=== PATIENT | female | born 1950 | race Caucasian/White ===

== ENCOUNTER 2020-03-11 20:38 | Observation (INO) ==
[2020-03-11] MEDS ORDERED: 0.9 % Sodium Chloride 1,000 ML IVC ONE (20:51)
[2020-03-11] MEDS ORDERED: Isovue-370 500 ML BOTTLE IVP ONE (20:52)
[2020-03-11] MEDS ORDERED: *HR* FentaNYL (PF) 100 MCG/2 ML VIAL IVP ONE (20:53)
[2020-03-11] MEDS ORDERED: Ondansetron 4 MG/2 ML VIAL IVP ONE (20:54)
[2020-03-11 21:08] LABS: Basophils % 0.2 %; Eosinophils # 0.1 K/mcL (0.0-0.6); Eosinophils % 0.5 %; Hemoglobin 15.3 g/dL (11.5-15.4); Immature Granulocytes % 0.3 % (0-4); Lymphocytes # 2.2 K/mcL (0.6-4.6); Lymphocytes % 14.3 %; Mean Corpuscular Hemoglobin 31.3 pg (28.0-33.3); Mean Platelet Volume 10.3 fL (9.4-12.4); Neutrophils # 10.9 K/mcL (1.6-8.9); Platelet Count 203 K/mcL (140-400); Red Blood Count 4.89 M/mcL (3.82-4.97); Red Cell Distribution Width 12.6 % (11.5-14.5); Segmented Neutrophils % 71.7 %; White Blood Count 15.3 K/mcL (4.3-11.1)
[2020-03-11 21:22] LABS: Bilirubin,Urine Negative (Negative); Blood,Urine Moderate (Negative); Clarity,Urine Turbid (Clear); Color,Urine Red (Yellow); Glucose,Urine (UA) Normal (Normal); Ketones,Urine 20 mg/dL (Negative); Leukocyte Esterase,Urine Small (Negative); Nitrite,Urine Negative (Negative); Protein,Urine 50 mg/dL (Neg-Trace); Specific Gravity,Urine 1.018 (1.010-1.025); Urobilinogen,Urine Normal (Normal)
[2020-03-11 21:30] LABS: Alanine Aminotransferase 57 Units/L (7-52); Albumin 4.6 g/dL (3.5-5.7); Albumin/Globulin Ratio 1.8 (1.1-2.2); Alkaline Phosphatase 100 Units/L (34-104); Aspartate Amino Transferase 26 Units/L (13-39); BUN/Creatinine Ratio 19 (6-26); Bilirubin,Direct 0.2 mg/dL (0.0-0.2); Bilirubin,Indirect 1.3 mg/dL (0.0-1.0); Bilirubin,Total 1.5 mg/dL (0.3-1.0); Blood Urea Nitrogen 20 mg/dL (8-23); Calcium 9.8 mg/dL (8.6-10.3); Carbon Dioxide 29 mEq/L (23-29); Chloride 103 mEq/L (98-107); Globulin 2.6 g/dL (2.4-3.5); Glucose 133 mg/dL (70-105); Lipase 21 Units/L (11-82); Osmolality,Calculated 295 (280-300); Potassium 3.5 mEq/L (3.5-5.1); Sodium 140 mEq/L (136-145); Total Protein 7.2 g/dL (6.4-8.9); eGFR For African Americans > 60 (> 60); eGFR For Non-African Americans 51 (> 60)
[2020-03-11] MEDS ORDERED: Morphine Sulfate 2 MG/ML SYRINGE IVP ONE ×3 (21:35→22:27)
[2020-03-11] MEDS ORDERED: *HR* HYDROmorphone (PF) 1 MG/ML SYRINGE IVP ONE ×2 (22:24→23:28)
[2020-03-11] MEDS ORDERED: cefTRIAXone 1,000 MG in Water for inj. (sterile) 10 ML IVP ONE (23:36)
[2020-03-11] MEDS ORDERED: Ketorolac 15 MG/ML VIAL IVP ONE (23:37)
[2020-03-12] MEDS ORDERED: Ondansetron 4 MG/2 ML VIAL IVP PRN (01:38)
[2020-03-12] MEDS ORDERED: Ketorolac 15 MG/ML VIAL IVP PRN (01:38)
[2020-03-12] MEDS ORDERED: Naloxone 0.4 MG/ML INJ IVP PRN (01:38)
[2020-03-12] MEDS: Ringers Solution, Lactated 1,000 ML IVC SCH ×2 (01:58→10:34)
[2020-03-12 03:19] LABS: Basophils % 0.2 %; Eosinophils % 0.1 %; Hematocrit 42.4 % (35.3-44.9); Hemoglobin 14.3 g/dL (11.5-15.4); Immature Granulocytes % 0.5 % (0-4); Lymphocytes # 1.3 K/mcL (0.6-4.6); Lymphocytes % 7.2 %; Mean Corpuscular HGB Conc 33.7 g/dL (31.6-35.5); Mean Corpuscular Hemoglobin 31.4 pg (28.0-33.3); Mean Platelet Volume 10.6 fL (9.4-12.4); Monocytes # 2.2 K/mcL (0.0-1.3); Neutrophils # 14.7 K/mcL (1.6-8.9); Platelet Count 191 K/mcL (140-400); Red Blood Count 4.56 M/mcL (3.82-4.97); Red Cell Distribution Width 12.6 % (11.5-14.5); White Blood Count 18.4 K/mcL (4.3-11.1)
[2020-03-12 03:26] LABS: Prothrombin Time 11.1 Seconds (9.4-12.1)
[2020-03-12 03:29] LABS: Calcium 8.9 mg/dL (8.6-10.3); Potassium 3.7 mEq/L (3.5-5.1)
[2020-03-12] MEDS: amLODIPine 5 MG TABLET PO SCH (08:57)
[2020-03-12] MEDS: cefTRIAXone 1,000 MG in Water for inj. (sterile) 10 ML IVP SCH (09:04)
[2020-03-12] MEDS ORDERED: Lidocaine/EPI 1:100k 1% 50 ML VIAL ONE (12:39)
[2020-03-12] MEDS ORDERED: 0.9 % Sodium Chloride 500 ML ONE (12:39)
[2020-03-12] MEDS ORDERED: *HR* FentaNYL (PF) 100 MCG/2 ML VIAL IVP ONE (12:57)
[2020-03-12] MEDS ORDERED: *HR* Midazolam HCl 2 MG/2 ML VIAL IVP ONE (12:57)
[2020-03-12] MEDS ORDERED: Isovue-300 50ML VIAL IVP ONE (13:56)
[2020-03-12] MEDS ORDERED: Metoprolol XL (24 HR) Succ 25 MG TAB.ER.24H PO SCH (18:00)
[2020-03-13] MEDS: cefTRIAXone 1,000 MG in Water for inj. (sterile) 10 ML IVP SCH (08:56)
[2020-03-13] MEDS: amLODIPine 5 MG TABLET PO SCH (08:57)
[2020-03-13 10:34] LABS: Basophils % 0.3 %; Eosinophils # 0.1 K/mcL (0.0-0.6); Eosinophils % 1.3 %; Hematocrit 37.7 % (35.3-44.9); Immature Granulocytes % 0.4 % (0-4); Lymphocytes # 2.1 K/mcL (0.6-4.6); Lymphocytes % 22.2 %; Mean Corpuscular HGB Conc 33.2 g/dL (31.6-35.5); Mean Corpuscular Hemoglobin 31.1 pg (28.0-33.3); Mean Corpuscular Volume 93.8 fL (83.0-100.0); Mean Platelet Volume 10.5 fL (9.4-12.4); Monocytes # 1.1 K/mcL (0.0-1.3); Monocytes % 11.4 %; Neutrophils # 6.2 K/mcL (1.6-8.9); Platelet Count 184 K/mcL (140-400); Red Blood Count 4.02 M/mcL (3.82-4.97); Red Cell Distribution Width 12.6 % (11.5-14.5); Segmented Neutrophils % 64.4 %; White Blood Count 9.6 K/mcL (4.3-11.1)
[2020-03-13 10:44] LABS: Hemoglobin 12.5 g/dL (11.5-15.4)
[2020-03-13 10:50] LABS: BUN/Creatinine Ratio 26 (6-26); Blood Urea Nitrogen 24 mg/dL (8-23); Calcium 8.8 mg/dL (8.6-10.3); Carbon Dioxide 27 mEq/L (23-29); Chloride 107 mEq/L (98-107); Glucose 120 mg/dL (70-105); Osmolality,Calculated 295 (280-300); Potassium 3.5 mEq/L (3.5-5.1); Sodium 140 mEq/L (136-145); eGFR For African Americans > 60 (> 60); eGFR For Non-African Americans > 60 (> 60)
[2020-03-13 12:18] VITALS: BP 112/72
== END 2020-03-13 12:45 | disposition home or self-care (01) ==
LOC: EMEROOARM 20:38 → 3BNU 20:38 → SUATTDRO 03-12 00:11 → 3BNU 03-12 00:28
PROVIDERS: ADMIT Internal Medicine; ATTEND Internal Medicine